=== PATIENT | female | born 1960 | race Caucasian/White ===

== ENCOUNTER 2017-09-20 13:11 | Emergency (ER) | payer OTHER ==
[~2017-09-20] VITALS: Ht 177.8 cm; Wt 109.0 kg
[~2017-09-20 13:11] MED LIST: CEPHALEXIN500 MG PO; PAROXETINE20 MG PO; TRAZODONE50 MG PO; VICODIN HP1 TA1 PO; ZOLPIDEM TARTRA10 MG PO
[2017-09-20] MEDS ORDERED: EC-NAPROSYN500 MG PO (13:33)
[2017-09-20 14:16] VITALS: BP 118/70
== END 2017-09-20 14:17 | disposition home or self-care (01) | DRG 558 ==
LOC: ED 13:11
DX: M70.51 Other bursitis of knee, right knee (principal); M17.11 Unilateral primary osteoarthritis, right knee; M25.561 Pain in right knee; M25.461 Effusion, right knee